=== PATIENT | female | born 1980 | race Caucasian/White ===

== ENCOUNTER 2021-05-09 11:06 | Day surgery (SDC) | payer OTHER ==
[2021-05-04 10:56] VITALS: BMI 33.6
[2021-05-09] MEDS ORDERED: MIDAZOLAM HCL 2 MG/2 ML SINGLE DOSE VIAL ONE ×2 (13:13)
[2021-05-09] MEDS ORDERED: PROPOFOL 20 ML ONE ×2 (13:18)
[2021-05-09] MEDS ORDERED: ceFAZolin SODIUM 1 GM VIAL ONE (13:27)
[2021-05-09] MEDS ORDERED: BUPIVACAINE HCL/PF 0.25% (2.5MG/ML) 10 ML VIAL IJ ONE ×2 (13:42)
[2021-05-09] MEDS ORDERED: BUPIVACAINE HCL/PF 0.25% (2.5MG/ML) 10 ML VIAL ONE (13:49)
[2021-05-09] MEDS ORDERED: ePHEDrine SULFATE 50 MG/1 ML AMPULE ONE (13:52)
[2021-05-09] MEDS ORDERED: ONDANSETRON 4 MG/2 ML VIAL IVPUSH PRN (14:09)
[2021-05-09] MEDS ORDERED: PROMETHAZINE HCL 25 MG/1 ML VIAL IVPUSH PRN (14:09)
[2021-05-09] MEDS ORDERED: oxyCODONE HCL 5 MG TABLET PO PRN (14:09)
[2021-05-09] MEDS ORDERED: LACTATED RINGERS SOLUTION 1,000 ML IV SCH (14:15)
[2021-05-09 17:42] VITALS: TEMP 97.8
[2021-05-09 17:45] VITALS: BP 128/71; PULSE 89
== END 2021-05-09 16:15 | disposition home or self-care (01) ==
LOC: FASU 11:06
PROVIDERS: ATTEND Orthopaedic Surgery Hand Surgery
PROC: 01N54ZZ Release Median Nerve, Percutaneous Endoscopic Approach (ICD-10-PCS; principal; 2021-05-09 13:35)
DX: G56.01 Carpal tunnel syndrome, right upper limb (principal)
CPT/HCPCS: 84703; 94760

== ENCOUNTER 2021-09-26 06:12 | Day surgery (SDC) | payer OTHER ==
[2021-09-25 11:19] VITALS: BMI 33.6
[2021-09-26] MEDS ORDERED: PROPOFOL 20 ML ONE (07:21)
[2021-09-26] MEDS ORDERED: MIDAZOLAM HCL 2 MG/2 ML SINGLE DOSE VIAL ONE (07:21)
[2021-09-26] MEDS ORDERED: DEXAMETHASONE SOD PHOSPHATE 4 MG/1 ML VIAL ONE (08:09)
[2021-09-26] MEDS ORDERED: ONDANSETRON 4 MG/2 ML VIAL ONE (08:09)
[2021-09-26] MEDS ORDERED: BUPIVACAINE HCL/PF 0.25% (2.5MG/ML) 10 ML VIAL ONE (08:16)
[2021-09-26] MEDS ORDERED: BUPIVACAINE HCL/PF 0.25% (2.5MG/ML) 10 ML VIAL IJ ONE (08:17)
[2021-09-26] MEDS ORDERED: ONDANSETRON 4 MG/2 ML VIAL IVPUSH PRN (08:41)
[2021-09-26] MEDS ORDERED: oxyCODONE HCL 5 MG TABLET PO PRN ×2 (08:41)
[2021-09-26] MEDS ORDERED: LACTATED RINGERS SOLUTION 1,000 ML IV SCH (08:45)
[2021-09-26] MEDS ORDERED: ACETAMINOPHEN 325 MG TABLET (FP) ONE (09:31)
[2021-09-26] MEDS ORDERED: ACETAMINOPHEN 500 MG TABLET (FP) PO ONE (09:31)
[2021-09-26 10:46] VITALS: BP 120/78; PULSE 72; TEMP 97.4
== END 2021-09-26 09:55 | disposition home or self-care (01) ==
LOC: FASU 06:12
PROVIDERS: ATTEND Orthopaedic Surgery Hand Surgery
PROC: 01N54ZZ Release Median Nerve, Percutaneous Endoscopic Approach (ICD-10-PCS; principal; 2021-09-26 08:06)
DX: G56.02 Carpal tunnel syndrome, left upper limb (principal)
CPT/HCPCS: 81025; 94760